=== PATIENT | male | born 1990 | race Caucasian/White ===

== ENCOUNTER 2016-04-21 09:13 | Emergency (ER) | payer MEDICAID ==
[~2016-04-21] VITALS: Ht 157.5 cm; Wt 67.9 kg
[2016-04-21 09:18] VITALS: Ht 157.5 cm; Wt 67.9 kg
[2016-04-21] MEDS ORDERED: IPRATROPIUM (NEB) 0.5 MG/2.5 ML AMP HHN ONE (10:30)
[2016-04-21] MEDS ORDERED: DEXAMETHASONE 10 MG/ML 1 ML INJ IM ONE (10:30)
[2016-04-21] MEDS ORDERED: ALBUTEROL 0.083% (NEB) 2.5 MG/3 ML AMP HHN ONE (10:30)
--- NOTE | 2016-04-21 11:13 | RADRPT ---
PROCEDURE: XR Chest. CLINICAL INDICATION: Cough TECHNIQUE: Single frontal view of the chest was obtained COMPARISON: None FINDINGS: The heart and mediastinum are within normal limits. The lungs are clear. There is no pleural effusion or pneumothorax. RPTAT: AA IMPRESSION: No acute disease. .Gera Billings MD, Date Time Electronically viewed and signed by .Gera Billings MD, on 04/21/2016 11:12 .S/
[2016-04-21] MEDS ORDERED: ALBU8.5H3 INH (11:24)
[2016-04-21] MEDS ORDERED: PRED20TA PO (11:24)
--- NOTE | 2016-04-21 14:22 | ERD ---
DATE OF SERVICE: 04/21/2016 HISTORY OF PRESENT ILLNESS: The patient is a 25-year-old male complaining of a dry cough, sneezing and nasal congestion, no fevers, no sick contacts. He has taken Nyquil and DayQuil in the past. La st medication was taken earlier today with no alleviation of symptoms. He has never had a history o f pneumonia or asthma in the past. He has been using his sister's inhaler which he noticed improves the symptoms. Denies any pleuritic chest pain, no hemoptysis. PAST MEDICAL HISTORY: Denies any other medical problems. ALLERGIES: DENIES ALLERGIES TO MEDICATIONS. PAST SURGICAL HISTORY: Denies. SOCIAL HISTORY: Denies. REVIEW OF SYSTEMS: A 12-point review of systems was done. Refer to HPI for positives, all other sy stems negative. PHYSICAL EXAMINATION VITAL SIGNS: Temperature is 98.1, pulse 96, blood pressure is 142/96, respiratory rate 20, O2 satur ation 99% on room air. Pain intensity is 0/10. GENERAL: The patient is well-appearing, well-nourished, no acute distress. HEENT: Atraumatic. Conjunctivae are pink. Pupils equal, round, and reactive to light. There is no s cleral icterus. Tympanic membranes clear bilaterally. Oropharynx clear. No nystagmus or photophobia . CHEST: The patient has diffuse wheezing. ____auscultation. No focal rhonchi, no retractions. No trismus or stridor. Breath sounds heard throughout. HEART: Regular rate and rhythm. No murmurs, clicks, rubs or gallops. No S3 or S4. ABDOMEN: Soft, nontender and nondistended. Good bowel sounds. No rebound or guarding. No gross blayne tonitis. No gross organomegaly or masses. No Sheridan sign or McBurney point tenderness. SKIN: There is no apparent rash or petechia. The skin is warm and dry. EMERGENCY ROOM COURSE: The patient had a 1-view chest x-ray done in the ER which showed no acute di sease. Patient had a breathing treatment of albuterol and Atrovent and given an IM injection of Dec adron. Upon reevaluation, patient's symptoms seem to be improving. DIAGNOSIS: Bronchitis with wheezing. MEDICAL DECISION MAKING: I have low suspicion for pneumonia, low suspicion for hypoxia, respiratory distress. Patient's exam is within normal limits. Oxygen saturation 99% on room air and the patie nt was resting comfortably. Patient's symptoms improved with breathing treatment. Low suspicion fo r PE, pneumonia or other pulmonary emergencies at this time. DISCHARGE: The patient is discharged stable. Patient given a prescription for prednisone and albut cathleen and told to follow up with primary care within 1 to 2 days for reevaluation. The patient was t old if symptoms progress or worsen to return to the ER. Patient given strict ER precautions. All o ther questions answered. Patient understood and complied with plan. Dictated By: BAR BECERRA for JEOVANNY STERLING/ADDY Conf#: [id number] DID#: [id number]
== END 2016-04-21 11:45 | disposition home or self-care (01) ==
LOC: FTE 09:13
DX: J40 Bronchitis, not specified as acute or chronic (principal); R06.2 Wheezing
CPT/HCPCS: 71010; 94664; 96372; J1100; Z7502; Z7610

== ENCOUNTER 2017-04-20 23:18 | Emergency (ER) | END 2017-04-21 05:36 | disposition home or self-care (01) ==